=== PATIENT | male | born 1985 | race Caucasian/White ===

== ENCOUNTER 2025-07-08 04:18 | Emergency (ER) | payer OTHER ==
[~2025-07-08] VITALS: Ht 170.2 cm; Wt 101.9 kg
[2025-07-08 04:18] VITALS: BP 122/93; PULSE 75; RESP 18; TEMP 98.7; O2SAT 96
[2025-07-08] MEDS: TETRACAINE HCL 0.5% OPTH(EYE) SOLN 4ML RIGHTEYE ONE (04:40)
[2025-07-08] MEDS: FLUORESCEIN SOD OPTH TEST STRIP RIGHTEYE ONE (04:40)
--- NOTE | 2025-07-08 04:48 | ED.PDOC ---
Eye-HPI HPI Comments 40-year-old male presents to ER with right eye complaint x2 days. Patient reports he has been experiencing redness, irritation and clear drainage to right eye x2 days. States his symptoms started while he was "wearing protective eyewear" and grinding metal 2 days ago. Denies any pain and states he attempted to flush his right eye out several times without relief. Denies vision changes, use of contacts/glasses, skin changes or any further symptoms/complaints Chief Complaint: Eye Problem Time Seen by MD: 04:26 Primary Care Provider: UNKNOWN Reviewed Notes: Nurses Notes, Medications, Allergies Allergies: Coded Allergies: NO KNOWN ALLERGIES (Unverified , 07/08/25) Home Meds Active Scripts Erythromycin (Erythromycin) 5 Mg/Gm Oin, 1 MG OP 6XD for 7 Days, #1 OIN 0 Refills Prov:JESÚS BLACK 07/08/25 Information Source: Patient Mode of Arrival: Ambulatory Past Medical History PAST MEDICAL HISTORY: Denies Surgical History: Denies all surgeries Family History Family History: Unknown Social History Smoker: Non-Smoker Alcohol: Denies ETOH Use Drugs: Denies Drug Use Lives In: Home Constitutional: denies: chills, diaphoresis, fatigue, fever, malaise, sweats, weakness, others EENTM: reports: others (As stated in HPI) Respiratory: denies: cough, hemoptysis, orthopnea, SOB at rest, shortness of breath, SOB with excertion, stridor, wheezing, others Cardiovascular: denies: chest pain, dizzy spells, diaphoresis, Dyspnea on exertion, edema, irregular heart beat, left arm pain, lightheadedness, palpitat ions, PND, syncope, others Gastrointestinal: denies: abdomen distended, abdominal pain, blood streaked bow els, constipated, diarrhea, dysphagia, difficulty swallowing, hematemesis, melena, nausea, poor appetite, poor fluid intake, rectal bleeding, rectal pain, vomiting, others Genitourinary: denies: burning, dysuria, flank pain, frequency, hematuria, incontinence, penile discharge, penile sore, pain, testicle pain, testicle swelling, urgency, others Neurological: denies: dizziness, fainting, headache, left sided numbness, left sided weakness, numbness, paresthesia, pre-existing deficit, right sided numbness, right sided weakness, seizure, speech problems, tingling, tremors, weakness, others Musculoskeletal: denies: back pain, gout, joint pain, joint swelling, muscle pain, muscle stiffness, neck pain, others Integumetry: denies: bruises, change in color, change in hair/nails, dryness, laceration, lesions, lumps, rash, wounds, others Allergic/Immunocompromised: denies: Difficulty Healing, Frequent Infections, Hives, Itching, others Hematologic/Lymphatic: denies: anemia, blood clots, easy bleeding, easy bruising, swollen glands, others Endocrine: denies: excessive hunger, excessive sweating, excessive thirst, excessive urination, flushing, intolerance to cold, intolerance to heat, unexplained weight gain, unexplained weight loss, others Psychiatric: denies: anxiety, bipolar disorder, depression, hopeless, panic disorder, schizophrenia, sleepless, suicidal, others Physical Exam General Appearance: No Apparent Distress, Obese HEENT: PERRL/EOMI, Pharynx Normal, TMs Normal, Other (Wood's lamp examination right eye-subconjunctival injection and corneal abrasion noted, no drainage noted, no foreign body appreciated. No skin changes noted) Neck: Full Range of Motion, Non-Tender, Normal Respiratory: Chest Non-Tender, Lungs Clear, No Accessory Muscle Use, No Respiratory Distress, Normal Breath Sounds Cardiovascular: No Murmur, No Gallop, Regular Rate/Rhythm Breast Exam: Deferred Gastrointestinal: NOT DONE Genitalia: Deferred Pelvic: Deferred Rectal: Deferred Extremities: Normal capillary refill, Normal range of motion Neurologic: Alert, central office repairer II-XII nml as Tested, No Motor Deficits, Normal Affect, Normal Mood, No Sensory Deficits Cerebellar Function: Normal Reflexes: Normal Skin: Dry, Normal Color, Warm Lymphatic: No Adenopathy Was a procedure done? Was a procedure done?: No Sedation Sedation?: No EENT DIFF Eye: Corneal Lacerations, Foreign Body-Corneal, Globe Rupture, Orbital Cellulits, Periorbital Cellulits X-Ray, Labs, Meds, VS Vital Signs Date Time Temp Pulse Resp B/P (MAP) Pulse Ox O2 Delivery O2 Flow Rate FiO2 07/08/25 04:45 Room Air 07/08/25 04:18 98.7 75 18 122/93 96 98.7 Tetracaine ophthalmic ordered Fluorescein stain ophthalmic ordered Patient had improvement in symptoms and in no distress prior to discharge Advised to follow up with PCP and Ophthalmology in 1-2 days Patient verbalized understanding and agreeable with current plan of care Advised to return to ER immediately if symptoms worsen Time of 1ST Reevaluation: 04:26 Reevaluation 1ST: N/A Patient Education/Counseling: Diagnosis, Treatment, Prognosis, Need For Follow Up Family Education/Counseling: No Family Present SEPSIS Sepsis Screen Date sepsis recognized/suspect: Jul 08, 2025 Time Sepsis recognized/suspect: 417 Recent Procedure: No On Antibiotic Therapy: No Respiratory Rate >20: No Heart Rate >90: No Temp<36 C (96.8 F) or >38.3 C: No SBP <90 or MAP <65 mmHG: No New Acute Mental Status Change: No Is the patient on CPAP, BIPAP,: No Vital Signs Date Time Temp Pulse Resp B/P (MAP) Pulse Ox O2 Delivery O2 Flow Rate FiO2 07/08/25 04:45 Room Air 07/08/25 04:18 98.7 75 18 122/93 96 98.7 Departure 1 Departure Time of Disposition: 04:52 Impression: Primary Impression: Corneal abrasion, right Qualified Codes: S05.01XA - Injury of conjunctiva and corneal abrasion without foreign body, right eye, initial encounter Disposition: HOME / SELF CARE / HOMELESS Condition: Stable e-Prescriptions Erythromycin (Erythromycin) 5 Mg/Gm Oin 1 MG OP 6XD for 7 Days, #1 OIN 0 Refills Prov: JESÚS BLACK 07/08/25 Discharged With: Self Critical Care Note Critical Care Time?: No Stability Stability form required: No Heart Score Heart Score: Heart Score Response (Comments) Value History N/A 0 EKG N/A 0 Age N/A 0 Risk Factors N/A 0 Troponin N/A 0 Total 0 JESÚS BLACK Jul 08, 2025 04:48
[2025-07-08] MEDS ORDERED: ERY05OO OP (04:55)
== END 2025-07-08 05:13 | disposition home or self-care (01) ==
LOC: ER 04:18
DX: S05.01XA Injury of conjunctiva and corneal abrasion without foreign body, right eye, initial encounter (principal); X58.XXXA Exposure to other specified factors, initial encounter; Y93.89 Activity, other specified; Y92.89 Other specified places as the place of occurrence of the external cause; Y99.8 Other external cause status